=== PATIENT | female | born 1960 | race Caucasian/White ===

== ENCOUNTER 2023-08-30 13:30 | Outpatient (RCR) | payer BC, SELFPAY ==
--- NOTE | 2023-07-20 10:54 | OT.OPOE ---
OT Outpatient Ortho Eval OT Outpatient Ortho Eval* Start: 07/20/23 07:15 Freq: Status: Active Protocol: Document 07/20/23 07:15 AMB (Rec: 07/20/23 10:49 AMB [id number]) E-signed By Susan Hyde, OTR/L, CLT, FRONT MAN OT OP Ortho Eval Details Complexity Complexity Low Insurance Information Insurance Information Medicaid,Medicare B Outpatient History/Precautions Current Condition/Medical Diagnosis Referring Provider Dr Beckwith Treatment Diagnosis RUE CMC OA Date of Onset Chronic Medical Conditions Metal Implants Other Conditions Hx of DeQuervain's tenosynovitis in the RUE that was treated with steroid injections, also has a hx of ankle fx with ORIF in the distant past. Medical/Functional History Medical History Reviewed Yes Prior Level of Function/Mobility Pt is a pleasant 63yo female referred to OT secondary to OA of the RUE CMC joint. Pt was seen by Dr Beckwith on 06/27/23 with x-rays revealing moderate CMC OA and STT joint OA with joint space narrowing of 75+% and small to moderate osteophytosis / subchondral sclerosis. Dr Beckwith and patient have elected to try conservative management. He has provided her with a PUSH splint as well as recommendations for ice and oral NSAIDs / Tylenol for pain . 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 Pt states she noticed the pain was different, more intense in her hand vs forearm. Pt states she is actively renovating a home and uses a lot of power tools / hand tools and is having difficulty with many of the things she needs to due pain and weakness in her hand. Pt states her average pain is 4/10 and occurs randomly, not necessarily related to one specific activity, but possibly noted more after doing a lot of heavy hand work. Pt also enjoys sewing and has difficulty with using a scissors, pinching and pulling pins, and manipulating fabric. Pain Assessment Pain Present Pain Present Pain Reported Location Right Hand Description Dull, Achy Intensity 4 Range of Motion and Strength Hand/Finger/Thumb Range of Motion and Strength Hand/Finger/Thumb Range of Motion and 07/20/23 Pt demonstrates AROM Strength to be WFL throughout BUE with the exception of her RUE thumb . Radial abd is 38, palmar abd is 40, IP is WNL at 70. Pt has pain at EROM of RA and PA . Hand Pinch/First Dyer Strength Hand Right First Dyer Strength Position 1 (lbs) 36 Lateral Pinch Strength (lbs) 12 Three Point Pinch (lbs) 10 Left First Dyer Strength Position 1 (lbs) 61 Lateral Pinch Strength (lbs) 14 Three Point Pinch (lbs) 12 OT Objective Data Hand Hand Dominance Right Observations/Posture/Limb Appearance Objective Observations 07/20/23 Noted decreased palmar arch, thumb is radially adducted at rest and mild swelling is appreciated at the CMC joint. 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 Other Problems Writing,Opening Containers, Computer Patient Potential Good Assessment Assessment Assessment Pt is a very pleasant, active 63yo female with complaints of limited ROM, weakness and pain in her RUE hand/thumb. These impairments limit her ability to perform higher level ADLs and IADLs as well as raise concerns for further injury without intervention. Pt will benefit from skilled OT intervention to provide custom splinting, pt education regarding joint protection and self help techniques and to establish home program for LT management of her chronic condition. Pt may also benefit from modalities and MT to help decrease inflammation and pain. Occupational Therapy Treatment Plan - OP Potential Rehabilitation Potential Good Set Goals Goals Set with Patient Yes Goals Goals 1. Pt will be independent and compliant with HEP in order to promote improved CMC stability and resume full, pain-free use of hand. 3 weeks 2. Pt will demonstrate good knowledge of joint protection techniques and adaptive equipment to promote joint stability / alignment of the CMC joint to decrease risk for deformity and further injury. 6 weeks 3. Pt will verbalize reduction in pain with functional tasks indicating a reduction of inflammation which will reduce risk for further arthritic changes deformity. 7 weeks. 4. Pt will demonstrate pain- free tube puller and pinch strength comparable to the the uninvolved extremity in order to improve prehension, grasp, and lifting ability needed to complete self-care, cooking, and cleaning tasks. 8 weeks. Treatment Plan Treatment Plan Evaluation,Edema Control, Iontophoresis,Joint Mobilization,Manual Therapy, Splinting,Ultrasound, Therapeutic Exercise, Therapeutic Activities,Self Care/Home Management,Education Expected Frequency 1-2x Week Expected Duration 6-8 Weeks Home Program Home Program Home Program Initiated Home Program Specifics Provided training and practice in HEP For basic AROM of the RUE thumb to promote synovial fluid circulation and to maintain / improve ROM. Certification Certification I Certify That: Therapy Services Provided, Therapy Plan Established, Therapy Plan Reviewed Recertification Information Recertification Information Initial Certification Date 07/20/23 Recertification Due Date 10/18/23 Reasons to Continue Skilled Therapy Initiated OT secondary to pain , weakness and limited AROM in the RUE thumb/hand due to CMC OA. Rehabilitation Potential Good Continued Plan of Care and Interventions Please see above Provider Signature Shows Agreement With POC & Medical Necessity Physician Comment/Change Comment or Changes Physician NPI Number #
== END 2023-10-04 15:59 | disposition home or self-care (01) ==
PROVIDERS: PCP Orthopaedic Surgery Sports Medicine; Visit Provider Orthopaedic Surgery Sports Medicine
DX: M18.11 Unilateral primary osteoarthritis of first carpometacarpal joint, right hand (principal); Z51.89 Encounter for other specified aftercare
CPT/HCPCS: 97035; 97110; 97140; 97165; X5282